=== PATIENT | female | born 1960 | race Caucasian/White ===

== ENCOUNTER 2024-02-11 15:28 | Emergency (ER) | payer MEDICAID ==
[~2024-02-11] VITALS: Ht 160 cm; Wt 72.6 kg
[2024-02-11 15:36] VITALS: TEMP 98.6; O2SAT 98
[2024-02-11] MEDS: HYDRALAZINE 20MG/ML VIAL IV ONE (18:00)
[2024-02-11 18:03] LABS: POTASSIUM 3.8 mEq/L (3.5-5.1)
[2024-02-11 18:05] LABS: CALCIUM 9.1 mg/dL (8.7-10.4)
[2024-02-11 18:06] LABS: BASOPHILS % 0.6 % (0.0-2.0); EOSINOPHILS % 2.7 % (0.0-5.0); HEMOGLOBIN. 12.1 g/dL (12.0-16.0); LYMPHOCYTES % 36.1 % (20.0-50.0); MEAN CORPUSCULAR HEMOGLOBIN 27.7 pg (28.0-32.0); MEAN CORPUSCULAR HGB CONC 33.5 g/dL (31.0-37.0); MEAN CORPUSCULAR VOLUME 82.7 fL (81.0-99.0); MONOCYTES % 6.4 % (2.0-8.0); NEUTROPHILS % 54.2 % (40.0-76.0); PLATELET 207 x1000/uL (130-400); RED BLOOD CELL COUNT 4.36 mill/uL (4.2-5.4); RED CELL DISTRIBUTION WIDTH 14.1 % (11.6-14.6); WHITE BLOOD COUNT 6.9 x1000/uL (4.5-11.0)
[2024-02-11 18:23] LABS: PARTIAL THROMBOPLASTIN TIME 24.2 sec (23.4-31.0); PROTHROMBIN TIME 11.3 sec (9.6-11.0)
[2024-02-11 21:05] VITALS: BP 171/90; PULSE 87; RESP 12; O2SAT 100
== END 2024-02-11 21:30 | disposition home or self-care (01) ==
LOC: ER 15:28
DX: H33.8 Other retinal detachments (principal); E11.9 Type 2 diabetes mellitus without complications; Z90.710 Acquired absence of both cervix and uterus
CPT/HCPCS: 99291; 96374; 70450; 80048; 85025; 85610; 85730; 36415; 93005; J0360